=== PATIENT | female | born 1980 ===

== ENCOUNTER 2023-01-12 06:00 | Day surgery (SDC) | payer OTHER ==
[2023-01-09 09:19] LABS: PH,URINE 5.5 (5.0-8.0); URINE APPEARANCE Clear; URINE BILIRRUBIN Negative (NEGATIVE); URINE BLOOD Large; URINE COLOR Yellow; URINE GLUCOSE Negative (NEGATIVE); URINE LEUKOCYTE Large; URINE NITRATE Negative; URINE PROTEIN Negative (NEGATIVE); URINE UROBILINOGEN 0.2 E.U./dl
[2023-01-09 09:22] LABS: HEMATOCRIT 38.4 % (36.0-45.00); HEMOGLOBIN 12.7 g/dL (12.0-15.00); MEAN CELL VOLUME 85.6 fL (80.00-100.00); MEAN CORPUSCULAR HEMOGLOBIN 28.2 pg (27.00-32.0); RED BLOOD COUNT 4.48 M/uL (4.00-6.00); RED CELL DISTRIBUTION WIDTH 21.1 % (11.5-14.5)
[2023-01-09 09:23] LABS: URINE BACTERIA 303.6 uL (0.0-1933); URINE EPITHELIAL CELLS 48.6 uL (0.0-38.8); URINE RBC 1284.8 uL (0.0-20.8); URINE WBC 104.4 uL (0.0-23.2)
[2023-01-09 09:23] LABS: PLATELET COUNT 100 K/uL (150-450)
[2023-01-09 09:44] LABS: ALBUMIN 3.6 gm/dL (3.4-5.0); BILIRUBIN TOTAL 0.25 mg/dL (0.3-1.2); CALCIUM 9.1 mg/dL (8.5-10.1); CREATININE SERUM 0.73 mg/dL (0.55-1.02); GFR 87.43; GLOBULINA 3.5 G/DL (2.4-3.5); POTASSIUM 4.3 mEq/L (3.5-5.1); TOTAL PROTEIN 7.1 gm/dL (6.4-8.2)
[2023-01-09 12:06] LABS: INR 0.96; PARTIAL THROMBOPLASTIN TIME 26.4 SECONDS (22.0-34.0); PROTHROMBIN TIME 10.1 SECONDS (9.0-11.5)
[~2023-01-12 06:00] MED LIST: FERREX 150 PLU1 EACH PO; FLAGYL375 MG PO; TRAM1TAB98 PO
[2023-01-12] MEDS ORDERED: MORGIDOX100 MG PO (10:38)
[2023-01-12] MEDS ORDERED: IBU600 MG PO (10:38)
== END 2023-01-12 16:15 | disposition home or self-care (01) ==
LOC: CIR.AMB 06:00
PROVIDERS: ATTEND Obstetrics & Gynecology
DX: D25.0 Submucous leiomyoma of uterus (principal); N87.9 Dysplasia of cervix uteri, unspecified; N92.0 Excessive and frequent menstruation with regular cycle; N84.0 Polyp of corpus uteri; Z20.822 Contact with and (suspected) exposure to COVID-19